=== PATIENT | female | born 1955 | race Caucasian/White ===

== ENCOUNTER 2020-11-10 12:55 | Outpatient (CLI) | payer MEDICARE, OTHER ==
[2020-11-10 14:10] LABS: Hemoglobin 12.7 g/dL (12.0-15.5)
[2020-11-10 14:14] LABS: Anion Gap 12 mmol/L (10-20); BUN (Urea Nitrogen) 9 mg/dL (9.8-20.1); Calc. Creatinine Clearance 0 mL/min (70-130); Calcium 9.3 mg/dL (7.8-10.44); Carbon Dioxide 25 mmol/L (23-31); Chloride 95 mmol/L (98-107); Glucose 70 mg/dL (80-115); Sodium 127 mmol/L (136-145)
[2020-11-11 13:04] LABS: SARS-CoV-2 PCR by NAA Not Detected (NotDetected)
== END 2020-11-10 12:56 | disposition home or self-care (01) ==
LOC: LABBT 12:55
PROVIDERS: ATTEND Specialist
DX: Z01.818 Encounter for other preprocedural examination (principal); E04.1 Nontoxic single thyroid nodule; R05 Cough; Z20.822 Contact with and (suspected) exposure to COVID-19
CPT/HCPCS: 80048; 85014; 85018; 93005; U0003; U0005; 93010

== ENCOUNTER 2020-11-13 09:36 | Day surgery (SDC) | payer MEDICARE, OTHER ==
[2020-11-12 10:55] VITALS: BMI 21.6
[2020-11-13] MEDS ORDERED: Fentanyl 100 MCG/2 ML VIAL ONE ×2 (12:11→14:46)
[2020-11-13] MEDS ORDERED: Midazolam HCl 2 mg/2 ml Vial ONE (12:49)
[2020-11-13] MEDS ORDERED: Ondansetron PF 4 MG/2 ML Vial ONE (12:57)
[2020-11-13] MEDS ORDERED: Dexamethasone 20 MG/5 ML VIAL ONE (12:57)
[2020-11-13] MEDS ORDERED: PROPOFOL 200 MG/20 ML VIAL ONE (12:57)
[2020-11-13] MEDS ORDERED: Lidocaine 1% PF 5 ML VIAL ONE (12:57)
[2020-11-13] MEDS ORDERED: Glycopyrrolate 0.2 MG/ML 5 ML SYRINGE ONE (12:57)
[2020-11-13] MEDS ORDERED: hydrALAZINE 20 MG/ML VIAL ONE (16:13)
[2020-11-13] MEDS ORDERED: traMADol HCl 50 MG TAB ONE (18:32)
== END 2020-11-13 18:56 | disposition home or self-care (01) ==
LOC: SDC 09:36
PROVIDERS: ATTEND Specialist
PROC: 0GTG0ZZ Resection of Left Thyroid Gland Lobe, Open Approach (ICD-10-PCS; principal; 2020-11-13)
DX: E04.1 Nontoxic single thyroid nodule (principal); I10 Essential (primary) hypertension; Z87.891 Personal history of nicotine dependence; Z79.82 Long term (current) use of aspirin; Z79.83 Long term (current) use of bisphosphonates; Z79.899 Other long term (current) drug therapy
CPT/HCPCS: 88307; 88331; J0360; J1100; J2250; J2405; J2704; J3010